=== PATIENT | male | born 1980 | race Two or more races ===

== ENCOUNTER 2017-09-21 04:20 | Emergency (ER) | payer SELFPAY ==
[~2017-09-21] VITALS: Ht 185.4 cm; Wt 94.8 kg
--- NOTE | 2017-09-21 04:55 | NUR ---
PATIENT BIB SELF WITH CHIEF COMPLAINT OF 9/10 LEFT ANKLE PAIN, S/P "JUMPING OVER FENCE AND LANDING WRONG." NOTED WITH SLIGHT SWELLING, INCREASE IN PAIN UPON PALPATION, LIMITED RANGE OF MOTION DUE TO PAIN.
[2017-09-21] MEDS ORDERED: oxyCODONE/APAP (5/325 MG) 1 UDTAB TABLET ONE (05:00)
[2017-09-21] MEDS: oxyCODONE/APAP (5/325 MG) 1 UDTAB TABLET PO ONE (05:08)
--- NOTE | 2017-09-21 05:08 | NUR ---
PATIENT MEDICATED ORDERED
[2017-09-21 07:12] VITALS: BP 137/79
== END 2017-09-21 07:12 | disposition home or self-care (01) ==
LOC: ER 04:22
DX: S92.192A Other fracture of left talus, initial encounter for closed fracture (principal); X58.XXXA Exposure to other specified factors, initial encounter; Y93.39 Activity, other involving climbing, rappelling and jumping off; Y92.89 Other specified places as the place of occurrence of the external cause; Y99.8 Other external cause status
CPT/HCPCS: 29515; 73610; 73630; 99284; A4606; Z7610

== ENCOUNTER 2017-09-21 23:00 | Emergency (ER) | payer SELFPAY ==
[~2017-09-21] VITALS: Ht 167.6 cm; Wt 81.6 kg
[2017-09-21 23:00] VITALS: BP 125/63
== END 2017-09-21 23:27 | disposition home or self-care (01) ==
LOC: ER 23:01
DX: S92.002A Unspecified fracture of left calcaneus, initial encounter for closed fracture (principal); R26.2 Difficulty in walking, not elsewhere classified; W01.0XXA Fall on same level from slipping, tripping and stumbling without subsequent striking against object, initial encounter; Y93.89 Activity, other specified; Y92.89 Other specified places as the place of occurrence of the external cause; Y99.8 Other external cause status
CPT/HCPCS: 99283; A4606; Z7610